=== PATIENT | female | born 1965 | race Hispanic/Latino ===

== ENCOUNTER 2016-11-21 12:03 | Outpatient (CLI) | payer OTHER, MEDICARE ==
--- NOTE | 2016-11-21 13:37 | XRay Report ---
Left knee: Pain. There is a total knee replacement which appears well applied to their respective surfaces. No bone lucencies are identified. There is good alignment of the knee. No effusion and no soft tissue swelling identified. No prior exam for comparison. Impression: Knee replacement with no complications identified.
== END 2016-11-21 12:04 | disposition home or self-care (01) ==
LOC: SPVIMAG 12:03
PROVIDERS: ATTEND Orthopaedic Surgery Sports Medicine
DX: M25.562 Pain in left knee (principal); Z96.652 Presence of left artificial knee joint